=== PATIENT | male | born 1985 | race African-American/Black ===

== ENCOUNTER 2018-01-08 19:02 | Emergency (ER) | payer SELFPAY ==
[~2018-01-08] VITALS: Ht 175.3 cm; Wt 64.0 kg
[2018-01-08 23:25] VITALS: BP 128/75
== END 2018-01-08 23:25 | disposition home or self-care (01) ==
LOC: ER 19:02
DX: R07.9 Chest pain, unspecified (principal); J45.909 Unspecified asthma, uncomplicated
CPT/HCPCS: 71045; 93005; 99284; Z7610